=== PATIENT | male | born 1995 | race Caucasian/White ===

== ENCOUNTER 2019-01-13 19:50 | Emergency (ER) | payer MEDICAID, OTHER ==
[~2019-01-13] VITALS: Ht 167.6 cm; Wt 108.2 kg
--- NOTE | 2019-01-13 19:54 | NUR ---
BACK TO LOBBY, AWARE NPO AND GIVEN URINE CUP.
[2019-01-13 20:24] LABS: BASOPHILS # (AUTO) 0.04 x10^3/uL (0-0.1); BASOPHILS % (AUTO) 1 % (0-1); EOSINOPHILS # (AUTO) 0.08 x10^3/uL (0-0.4); EOSINOPHILS % (AUTO) 2 % (1-7); LYMPHOCYTES # (AUTO) 0.81 x10^3/uL (1-3.4); LYMPHOCYTES % (AUTO) 17 % (22-44); MD NO; MEAN CORPUSCULAR HEMOGLOBIN 30.8 pg (27.5-34.5); MEAN CORPUSCULAR HGB CONC 34.2 g/dL (33.2-36.2); MEAN CORPUSCULAR VOLUME 90.1 fL (81-97); MEAN PLATELET VOLUME 7.2 fL (7.4-10.4); MONOCYTES # (AUTO) 0.44 x10^3/uL (0.2-0.8); MONOCYTES % (AUTO) 9 % (2-9); NEUTROPHILS # (AUTO) 3.39 x10^3/uL (1.8-6.8); NEUTROPHILS % (AUTO) 71 % (42-75); PLATELET COUNT 252 x10^3/uL (130-400); RED BLOOD COUNT 5.53 x10^6/uL (4.38-5.82); RED CELL DISTRIBUTION WIDTH 12.9 % (9.4-14.8)
[2019-01-13 20:32] LABS: ALANINE AMINOTRANSFERASE 81 U/L (12-78); ALBUMIN 4.2 g/dL (3.4-5.0); ANION GAP 7 mmol/L (5-15); CALCIUM 8.9 mg/dL (8.5-10.1); CHLORIDE 105 mmol/L (98-107); CREATININE 1.07 mg/dL (0.7-1.3)
[2019-01-13 20:34] LABS: ALKALINE PHOSPHATASE 57 U/L (45-117); TOTAL PROTEIN 7.9 g/dL (6.4-8.2)
--- NOTE | 2019-01-13 21:14 | NUR ---
Urine collected. Pt c/o bilateral upper quadrant abd pain with flank pain x 2 weeks, worse today. Pt denies n/v/d, urine is clear yellow, denies difficulty or pain w/ urination. Vitals stable. Provider at bedside.
[2019-01-13 21:30] LABS: MICROSCOPIC NOT IND
[2019-01-13 21:42] LABS: CULTURE INDICATED? NO
--- NOTE | 2019-01-13 22:23 | NUR ---
Pt back from imaging.
[2019-01-13 23:21] VITALS: BP 139/82
== END 2019-01-13 23:27 | disposition home or self-care (01) ==
LOC: ED 23:15
DX: K29.20 Alcoholic gastritis without bleeding (principal); F10.10 Alcohol abuse, uncomplicated; Y90.9 Presence of alcohol in blood, level not specified
CPT/HCPCS: 36415; 76700; 80053; 81003; 83690; 85025; 99284

== ENCOUNTER 2019-11-25 18:00 | Emergency (ER) | payer MEDICAID ==
[~2019-11-25] VITALS: Ht 167.6 cm; Wt 111.0 kg
[2019-11-25 18:39] LABS: BASOPHILS # (AUTO) 0.05 x10^3/uL (0-0.1); BASOPHILS % (AUTO) 0 % (0-1); EOSINOPHILS # (AUTO) 0.26 x10^3/uL (0-0.4); EOSINOPHILS % (AUTO) 2 % (1-7); LYMPHOCYTES # (AUTO) 1.02 x10^3/uL (1-3.4); LYMPHOCYTES % (AUTO) 8 % (22-44); MD NO; MEAN CORPUSCULAR HEMOGLOBIN 30.1 pg (27.5-34.5); MEAN CORPUSCULAR HGB CONC 33.7 g/dL (33.2-36.2); MEAN PLATELET VOLUME 7.8 fL (7.4-10.4); MONOCYTES % (AUTO) 6 % (2-9); NEUTROPHILS # (AUTO) 10.79 x10^3/uL (1.8-6.8); NEUTROPHILS % (AUTO) 84 % (42-75); PLATELET COUNT 301 x10^3/uL (130-400); RED BLOOD COUNT 5.55 x10^6/uL (4.38-5.82); RED CELL DISTRIBUTION WIDTH 13.4 % (9.4-14.8)
[2019-11-25 18:48] LABS: ALBUMIN 4.3 g/dL (3.4-5.0); ANION GAP 6 mmol/L (5-15); CALCIUM 9.9 mg/dL (8.5-10.1); CHLORIDE 107 mmol/L (98-107)
[2019-11-25 18:49] LABS: CREATININE 1.22 mg/dL (0.7-1.3)
[2019-11-25] MEDS ORDERED: SODIUM CHLORIDE FLUSH 10ML SYR IVF ONE (21:00)
[2019-11-25] MEDS ORDERED: PROPOFOL 10 MG/ML, 20ML ONE (21:00)
[2019-11-25] MEDS ORDERED: PROPOFOL 10 MG/ML, 20ML IVPush ONE (21:00)
--- NOTE | 2019-11-25 21:05 | NUR ---
REPORT RECEIVED FOR PROSEDURAL SEDATION. CONSENT COMPLETED. PT PLACED ON MONITORS AND ROOM PREPPED FOR SEDATION. IV ACCESS OBTAINED. ERP AWAR OF PT. VSS.
[2019-11-25] MEDS ORDERED: LIDOCAINE-MPF 1%, 5ML ONE (21:08)
--- NOTE | 2019-11-25 21:20 | NUR ---
PROCEDURE COMPLETE--SEE SEDATION PACKET. PT TOLERATED WELL. TOTAL OF 300 MG PROPOFOL ADMINISTERED BY DR JOSSIE BENITEZ AT BEDSIDE. PT OPENS EYES TO VERBAL. REMAINS VERY DROWSY.
--- NOTE | 2019-11-25 21:30 | NUR ---
PT MORE AWAKE AT THIS TIME. LOOKING AT PHONE. ANSWERING QUESTIONS. VSS. REPORT TO LA, PRIMARY RN.
[2019-11-25] MEDS ORDERED: ONDANSETRON 2MG/ML, 2ML IVPush ONE (22:00)
[2019-11-25] MEDS ORDERED: MORPHINE SULFATE 4 MG/ML, 1ML IVPush PRN (22:00)
[2019-11-25] MEDS ORDERED: MORPHINE SULFATE 4 MG/ML, 1ML ONE (22:02)
[2019-11-25] MEDS ORDERED: ONDANSETRON 2MG/ML, 2ML ONE (22:02)
[2019-11-25 22:08] VITALS: BP 138/96
--- NOTE | 2019-11-25 22:09 | NUR ---
PT AWAKE/ALERT AND TALKATIVE WITH CLEAR SPEECH. TAKING PO FOOD/FLUID WO DIFFICULTY. PT REPORTS 7/10 PAIN, MEDICATED PER EMAR. REPORT TO MAITE CRAVEN
== END 2019-11-25 22:58 | disposition home or self-care (01) ==
LOC: ED 18:30
DX: L02.214 Cutaneous abscess of groin (principal)
CPT/HCPCS: 10060; 36415; 80048; 82040; 85025; 96374; 96375; 99284; J2270; J2405

== ENCOUNTER 2019-11-29 15:13 | Emergency (ER) | payer SELFPAY ==
[~2019-11-29] VITALS: Ht 167.6 cm; Wt 113.4 kg
[2019-11-29 15:36] VITALS: BP 134/77
--- NOTE | 2019-11-29 16:47 | NUR ---
Patient given wound car & discharge instructions and they have confirmed that they understand the instructions. Patient ambulatory with steady gait. Addendum: 11/29/19 at 1647 by ANDREINA Patient given wound care & discharge instructions and they have confirmed that they understand the instructions. Patient ambulatory with steady gait.
== END 2019-11-29 16:49 | disposition home or self-care (01) ==
LOC: ED 16:15
DX: N49.8 Inflammatory disorders of other specified male genital organs (principal)
CPT/HCPCS: 82962; 99282